=== PATIENT | male | born 2000 | race Caucasian/White ===

== ENCOUNTER 2020-01-03 12:32 | Emergency (ER) | payer SELFPAY ==
[~2020-01-03] VITALS: Ht 190.5 cm; Wt 70.3 kg
[~2020-01-03 12:32] MED LIST: PROMETHAZINE HC25 M1 PO
== END 2020-01-03 14:10 | disposition home or self-care (01) ==
LOC: ED 12:32
DX: K64.4 Residual hemorrhoidal skin tags (principal); F17.200 Nicotine dependence, unspecified, uncomplicated
CPT/HCPCS: 99282